=== PATIENT | female | born 1955 | race Caucasian/White ===

== ENCOUNTER → 2020-10-27 | Outpatient (CLI) | payer MEDICARE, MEDICAID ==
[2020-10-27 10:07] LABS: BASO # 0.03 (0.02-0.10); EOS % 1.6 % (1.0-5.0); HEMATOCRIT 47.9 % (37.0-47.0); HEMOGLOBIN 16.2 g/dL (12.5-16.0); LYMPH# 1.81 (1.50-4.00); MEAN CELL VOLUME 105 fl (78-100); MEAN CORPUSCULAR HEMOGLOBIN 36 pg (27-31); MEAN CORPUSCULAR HGB CONC 34 g/dL (33-37); MEAN PLATELET VOLUME 9.8 fl (7.4-10.4); MONO # 0.44 (0.20-0.80); NEU # 3.83 (1.40-6.50); PLATELET COUNT 218 K/mm3 (130-400); RED BLOOD COUNT 4.56 M/mm3 (4.10-5.30); RED CELL DISTRIBUTION WIDTH 12.5 % (11.5-14.5); WHITE BLOOD COUNT 6.2 K/mm3 (4.8-10.8)
[2020-10-27 10:15] LABS: POTASSIUM 4.7 mmol/L (3.5-5.1)
[2020-10-27 10:17] LABS: CALCIUM 8.9 mg/dL (8.3-10.5)
[2020-10-27 10:18] LABS: TOTAL PROTEIN 7.5 g/dL (6.2-8.1)
[2020-10-27 10:20] LABS: TOTAL BILIRUBIN 0.6 mg/dL (0.2-1.2)
== END ==
LOC: LAB 09:31
PROVIDERS: Physician Assistant
DX: E78.00 Pure hypercholesterolemia, unspecified (principal); I10 Essential (primary) hypertension

== ENCOUNTER → 2021-05-18 | Outpatient (CLI) | payer MEDICARE, MEDICAID | LOC: RAD 13:48 | DX: S20.211A Contusion of right front wall of thorax, initial encounter (principal) ==

== ENCOUNTER → 2021-10-01 | Outpatient (CLI) | payer MEDICARE, MEDICAID ==
[~2021-10-01] MED LIST: PRILOSEC 20MG20 MG PO
[2021-10-01 12:06] LABS: BASO # 0.02 K/mm3 (0.02-0.10); EOS # 0.06 K/mm3 (0.04-0.40); EOS % 1.1 % (1.0-5.0); HEMATOCRIT 49.7 % (37.0-47.0); HEMOGLOBIN 16.8 g/dL (12.5-16.0); LYMPH# 1.13 K/mm3 (1.50-4.00); MEAN CELL VOLUME 109 fl (78-100); MEAN CORPUSCULAR HEMOGLOBIN 37 pg (27-31); MEAN CORPUSCULAR HGB CONC 34 g/dL (33-37); MONO # 0.52 K/mm3 (0.20-0.80); NEU # 3.55 K/mm3 (1.40-6.50); PLATELET COUNT 203 K/mm3 (130-400); RED BLOOD COUNT 4.58 M/mm3 (4.10-5.30); WHITE BLOOD COUNT 5.3 K/mm3 (4.8-10.8)
[2021-10-01 12:07] LABS: ALBUMIN 3.7 g/dL (3.4-4.8); POTASSIUM 4.3 mmol/L (3.5-5.1)
[2021-10-01 12:08] LABS: CALCIUM 9.3 mg/dL (8.3-10.5)
[2021-10-01 12:10] LABS: TOTAL PROTEIN 6.8 g/dL (6.2-8.1)
[2021-10-01 12:11] LABS: TOTAL BILIRUBIN 0.8 mg/dL (0.2-1.2)
== END ==
LOC: LAB 11:31
PROVIDERS: Physician Assistant
DX: Z13.29 Encounter for screening for other suspected endocrine disorder (principal); S20.211A Contusion of right front wall of thorax, initial encounter; I10 Essential (primary) hypertension; E78.00 Pure hypercholesterolemia, unspecified; H10.33 Unspecified acute conjunctivitis, bilateral; F40.240 Claustrophobia; R51.9 Headache, unspecified; Y92.009 Unspecified place in unspecified non-institutional (private) residence as the place of occurrence of the external cause

== ENCOUNTER 2021-10-02 14:20 | Emergency (ER) | payer MEDICARE, MEDICAID ==
[~2021-10-02] VITALS: Ht 170.2 cm; Wt 66.8 kg
[2021-10-02 15:02] LABS: BASO # 0.04 K/mm3 (0.02-0.10); EOS # 0.09 K/mm3 (0.04-0.40); EOS % 1.7 % (1.0-5.0); HEMATOCRIT 48.1 % (37.0-47.0); HEMOGLOBIN 16.4 g/dL (12.5-16.0); LYMPH# 1.84 K/mm3 (1.50-4.00); MEAN CELL VOLUME 108 fl (78-100); MEAN CORPUSCULAR HEMOGLOBIN 37 pg (27-31); MEAN CORPUSCULAR HGB CONC 34 g/dL (33-37); MEAN PLATELET VOLUME 9.7 fl (7.4-10.4); MONO # 0.48 K/mm3 (0.20-0.80); NEU # 2.85 K/mm3 (1.40-6.50); PLATELET COUNT 207 K/mm3 (130-400); RED BLOOD COUNT 4.45 M/mm3 (4.10-5.30); WHITE BLOOD COUNT 5.3 K/mm3 (4.8-10.8)
[2021-10-02 15:11] LABS: POTASSIUM 3.7 mmol/L (3.5-5.1)
[2021-10-02 15:13] LABS: ALBUMIN 3.5 g/dL (3.4-4.8); TOTAL PROTEIN 6.6 g/dL (6.2-8.1)
[2021-10-02 15:15] LABS: CALCIUM 8.9 mg/dL (8.3-10.5)
[2021-10-02 15:18] LABS: TOTAL BILIRUBIN 0.4 mg/dL (0.2-1.2)
[2021-10-02 16:13] LABS: PH-URINE 6.5 (5.0 - 8.0); URINE APPEARANCE HAZY; URINE COLOR YELLOW
[2021-10-02 16:14] LABS: URINE BILIRUBIN NEGATIVE (NEGATIVE); URINE BLOOD TRACE (NEGATIVE); URINE GLUCOSE NEGATIVE (NEGATIVE); URINE KETONE NEGATIVE (NEGATIVE); URINE LEUKOCYTE ESTERASE NEGATIVE (NEGATIVE); URINE MUCUS PRESENT (NOT PRESENT); URINE NITRATE NEGATIVE (NEGATIVE); URINE PROTEIN(semi-quant) TRACE (NEGATIVE); URINE UROBILINOGEN NORMAL (NORMAL); URINE WBC 0-1 /hpf (0-3)
[2021-10-02] MEDS ORDERED: PRILOSEC 20MG20 MG PO (16:27)
[2021-10-02 16:34] VITALS: BP 159/92
== END 2021-10-02 16:50 | disposition home or self-care (01) ==
LOC: ED 14:20
PROVIDERS: Physician Assistant
DX: K29.20 Alcoholic gastritis without bleeding (principal); F10.20 Alcohol dependence, uncomplicated; F17.210 Nicotine dependence, cigarettes, uncomplicated
CPT/HCPCS: Q9967

== ENCOUNTER → 2022-07-24 | Outpatient (CLI) | payer MEDICARE, MEDICAID | LOC: RAD 16:03 | DX: S39.92XA Unspecified injury of lower back, initial encounter (principal); W19.XXXA Unspecified fall, initial encounter ==

== ENCOUNTER 2023-03-25 09:06 | Outpatient (RCR) | payer MEDICARE, MEDICAID ==
[~2023-03-25 09:06] MED LIST changes: +AMLODIPINE BESYL5 MG PO; +CELECOXIB100 M1 PO; +CETIRIZINE HCL10 MG PO; +ESTRADIOL0.5 M1 PO; +FLUTICASON0.05 MG/Ac NS; +NORCO 325 MG-7.1 TAB PO; +PREDNISONE20 M1 PO; +QUETIAPINE FUMA50 MG PO; +SIMVASTATIN10 M1 PO; +VITAMIN D3125 MC2 PO
== END 2023-04-18 15:06 | disposition home or self-care (01) ==
LOC: OPPGERO 09:06
DX: F43.21 Adjustment disorder with depressed mood (principal)

== ENCOUNTER 2023-04-22 09:00 | Outpatient (RCR) | payer MEDICARE, MEDICAID ==
[2023-05-16] MEDS ORDERED: ZITHROMAX Z PA250 MG PO (11:56)
[2023-05-16] MEDS ORDERED: PREDNISONE20 M1 PO (11:57)
== END 2023-05-21 17:33 | disposition home or self-care (01) ==
LOC: OPPGERO 09:00
DX: F43.21 Adjustment disorder with depressed mood (principal)

== ENCOUNTER → 2023-05-09 | Outpatient (CLI) | payer MEDICARE, MEDICAID | LOC: RAD 12:11 | DX: M25.552 Pain in left hip (principal); M25.512 Pain in left shoulder; M25.511 Pain in right shoulder; R07.81 Pleurodynia ==

== ENCOUNTER 2023-05-14 13:03 | Emergency (ER) | payer MEDICARE, MEDICAID ==
[~2023-05-14] VITALS: Ht 170.2 cm; Wt 62.7 kg
[2023-05-14 14:02] LABS: BASO # 0.02 K/mm3 (0.02-0.10); EOS # 0.02 K/mm3 (0.04-0.40); EOS % 0.4 % (1.0-5.0); HEMATOCRIT 45.4 % (37.0-47.0); HEMOGLOBIN 15.6 g/dL (12.5-16.0); LYMPH# 1.69 K/mm3 (1.50-4.00); MEAN CELL VOLUME 114 fl (78-100); MEAN CORPUSCULAR HEMOGLOBIN 39 pg (27-31); MEAN CORPUSCULAR HGB CONC 34 g/dL (33-37); MONO # 0.46 K/mm3 (0.20-0.80); NEU # 2.62 K/mm3 (1.40-6.50); PLATELET COUNT 187 K/mm3 (130-400); RED BLOOD COUNT 3.99 M/mm3 (4.10-5.30); RED CELL DISTRIBUTION WIDTH 14.1 % (11.5-14.5); WHITE BLOOD COUNT 4.8 K/mm3 (4.8-10.8)
[2023-05-14 14:12] LABS: ALBUMIN 3.2 g/dL (3.4-4.8); CALCIUM 8.2 mg/dL (8.3-10.5)
[2023-05-14 14:14] LABS: TOTAL PROTEIN 5.7 g/dL (6.2-8.1)
[2023-05-14 14:15] LABS: TOTAL BILIRUBIN 0.5 mg/dL (0.2-1.2)
[2023-05-14 14:21] LABS: D-DIMER 0.98 mg/L FEU (0.15-0.50)
[2023-05-14 14:32] LABS: TROPONIN-I 0.095 ng/mL (0.00-0.033)
[2023-05-14 15:30] VITALS: BP 118/92
== END 2023-05-14 17:50 | disposition other institution (70) ==
LOC: ED 13:03
PROVIDERS: Physician Assistant
DX: J44.1 Chronic obstructive pulmonary disease with (acute) exacerbation (principal); J96.01 Acute respiratory failure with hypoxia; F17.210 Nicotine dependence, cigarettes, uncomplicated
CPT/HCPCS: J0456; J2930; J7050; Q9967

== ENCOUNTER 2023-05-14 17:34 | Inpatient (IN) | payer MEDICARE, MEDICAID ==
[~2023-05-14] VITALS: Ht 170.2 cm; Wt 64.1 kg
[2023-05-14 18:17] VITALS: BP 141/69
[2023-05-14 20:24] VITALS: BP 114/65
[2023-05-14 22:00] VITALS: BP 108/67
[2023-05-15] VITALS (12 sets, daily range): BP systolic 100–138; BP diastolic 61–78
[2023-05-15 09:29] LABS: HEMATOCRIT 40.5 % (37.0-47.0); HEMOGLOBIN 14.1 g/dL (12.5-16.0); MEAN CELL VOLUME 112 fl (78-100); MEAN CORPUSCULAR HEMOGLOBIN 39 pg (27-31); MEAN CORPUSCULAR HGB CONC 35 g/dL (33-37); MEAN PLATELET VOLUME 9.2 fl (7.4-10.4); PLATELET COUNT 162 K/mm3 (130-400); RED BLOOD COUNT 3.63 M/mm3 (4.10-5.30); RED CELL DISTRIBUTION WIDTH 13.8 % (11.5-14.5)
[2023-05-15 10:00] LABS: LYMPHOCYTE 3 % (20-51); MONOCYTE 4 % (3-10); NEUTROPHILS 93 % (42-75)
[2023-05-15 10:01] LABS: ALBUMIN 3.3 g/dL (3.4-4.8)
[2023-05-15 10:03] LABS: CALCIUM 8.4 mg/dL (8.3-10.5)
[2023-05-15 10:04] LABS: TOTAL PROTEIN 6.2 g/dL (6.2-8.1)
[2023-05-15 10:06] LABS: TOTAL BILIRUBIN 0.7 mg/dL (0.2-1.2)
[2023-05-16 00:11] VITALS: BP 124/71
[2023-05-16 02:29] VITALS: BP 93/54
[2023-05-16 04:13] VITALS: BP 123/80
[2023-05-16 05:46] VITALS: BP 106/62
[2023-05-16 09:02] VITALS: BP 128/78
[2023-05-16] MEDS ORDERED: ZITHROMAX Z PA250 MG PO (11:56)
[2023-05-16] MEDS ORDERED: PREDNISONE20 M1 PO (11:57)
[2023-05-16 12:26] VITALS: BP 114/73
== END 2023-05-16 14:05 | disposition home or self-care (01) | DRG 190 ==
LOC: MED/SURG 17:34
PROVIDERS: ADMIT Physician Assistant
DX: J44.1 Chronic obstructive pulmonary disease with (acute) exacerbation (principal); J96.01 Acute respiratory failure with hypoxia; J98.11 Atelectasis; R05.3 Chronic cough; F17.210 Nicotine dependence, cigarettes, uncomplicated; F10.20 Alcohol dependence, uncomplicated; Z79.891 Long term (current) use of opiate analgesic; Z91.81 History of falling; Z90.710 Acquired absence of both cervix and uterus
CPT/HCPCS: J0456; J0696; J2930; J3411; J7050; J7512

== ENCOUNTER 2023-05-22 09:00 | Outpatient (RCR) | payer MEDICARE, MEDICAID ==
[~2023-05-22 09:00] MED LIST changes: +ZITHROMAX Z PA250 MG PO
== END 2023-06-19 09:51 ==
LOC: OPPGERO 09:00
DX: F43.21 Adjustment disorder with depressed mood (principal)

== ENCOUNTER 2024-01-06 14:13 | Emergency (ER) | payer MEDICARE, MEDICAID ==
[~2024-01-06] VITALS: Ht 170.2 cm; Wt 52.0 kg
[2024-01-06 14:38] LABS: EOS # 0.17 K/mm3 (0.04-0.40); EOS % 1.5 % (1.0-5.0); HEMATOCRIT 46.2 % (37.0-47.0); LYMPH# 1.09 K/mm3 (1.50-4.00); MEAN CELL VOLUME 108 fl (78-100); MEAN CORPUSCULAR HEMOGLOBIN 37 pg (27-31); MEAN CORPUSCULAR HGB CONC 35 g/dL (33-37); MONO # 0.69 K/mm3 (0.20-0.80); NEU # 9.49 K/mm3 (1.40-6.50); PLATELET COUNT 305 K/mm3 (130-400); RED BLOOD COUNT 4.28 M/mm3 (4.10-5.30); RED CELL DISTRIBUTION WIDTH 14.2 % (11.5-14.5); WHITE BLOOD COUNT 11.5 K/mm3 (4.8-10.8)
[2024-01-06 14:48] LABS: ALBUMIN 2.9 g/dL (3.4-4.8); SODIUM 137 mmol/L (136-145)
[2024-01-06 14:49] LABS: CALCIUM 9.1 mg/dL (8.3-10.5)
[2024-01-06 14:51] LABS: GLUCOSE 83 mg/dL (65-105); TOTAL PROTEIN 6.5 g/dL (6.2-8.1)
[2024-01-06 14:52] LABS: CARBON DIOXIDE 20 mmol/L (23-31); TOTAL BILIRUBIN 0.6 mg/dL (0.2-1.2)
[2024-01-06 14:56] LABS: AST-SGOT 39 U/L (5-34)
[2024-01-06 14:57] LABS: ALT/SGPT 21 U/L (0-55); MAGNESIUM 1.53 mg/dL (1.60-2.60)
[2024-01-06] MEDS ORDERED: Ondansetron 4 MG/2 ML VIAL IV ONE (15:00)
[2024-01-06] MEDS ORDERED: NS 1,000 ML IV SCH (15:00)
[2024-01-06 15:13] LABS: ALCOHOL IN-HOUSE < 10 mg/dL (<10); TROPONIN-I < 0.030 ng/mL (0.00-0.033)
[2024-01-06] MEDS ORDERED: Dextrose/Magnesium Sulfate 100 ML IV ONE (15:15)
[2024-01-06] MEDS ORDERED: Iohexol 300 - 100 ML VIAL IV ONE (15:30)
[2024-01-06 16:17] LABS: URINE WBC 0 /hpf (0-3)
[2024-01-06 16:36] LABS: URINE APPEARANCE CLEAR (CLEAR); URINE COLOR YELLOW (YELLOW)
[2024-01-06 16:38] LABS: URINE BILIRUBIN 2+ (NEGATIVE); URINE BLOOD NEGATIVE (NEGATIVE); URINE GLUCOSE NEGATIVE (NEGATIVE); URINE KETONE 4+ (NEGATIVE); URINE LEUKOCYTE ESTERASE NEGATIVE (NEGATIVE); URINE NITRATE NEGATIVE (NEGATIVE); URINE PROTEIN(semi-quant) 1+ (NEGATIVE)
[2024-01-06] MEDS ORDERED: ZITHROMAX Z PA250 MG PO (17:21)
[2024-01-06] MEDS ORDERED: ONDANSETRON HYDR4 MG PO (17:21)
[2024-01-06 18:29] VITALS: BP 134/82
== END 2024-01-06 18:30 | disposition home or self-care (01) ==
LOC: ED 14:13
PROVIDERS: Physician Assistant
DX: K52.9 Noninfective gastroenteritis and colitis, unspecified (principal); R53.1 Weakness; R53.83 Other fatigue; F17.200 Nicotine dependence, unspecified, uncomplicated
CPT/HCPCS: J2405; J3475; J7030; Q9967